=== PATIENT | female | born 1980 | race Caucasian/White ===

== ENCOUNTER 2016-06-30 19:46 | Emergency (ER) | payer BC, MEDICAID ==
[2016-06-30 21:01] LABS: ABSOLUTE NEUTROPHIL COUNT 235.2 K/mm3 (1.8-7.7); BASO # 21.2 K/mm3 (0.0-0.2); BASO % 5.1 % (0.2-1.0); EOS # 0.2 (0.0-0.5); EOS % 0.1 % (0.9-2.9); HEMOGLOBIN 9.3 gm/l (12.0-16.0); IMM NEUT # 135.9 K/mm3 (0-0.2); IMM NEUT% 32.5 % (0-1); LYMPH # 11.8 (1.0-4.8); LYMPH % 2.8 % (15-45); MEAN CELL VOLUME 92.8 fl (81.0-99.0); MEAN CORPUSCULAR HGB CONC 34.4 g/dl (33.0-37.0); MEAN PLATELET VOLUME 11.5 fl (7.4-10.4); MONO # 13.9 (0.0-0.8); MONO % 3.3 % (4-12); NEUT % 56.2 % (43-75); PLATELET COUNT 183 K/mm3 (130-400); RED CELL DISTRIBUTION WIDTH 19.4 % (11.5-14.5)
[2016-06-30 21:13] LABS: ALB/GLOB RATIO 1.2 (>1.0); ALBUMIN 4.6 gm/dL (3.5-5.7); CALCIUM 9.8 mg/dL (8.6-10.3); URIC ACID 8.6 mg/dL (2.3-7.6)
[2016-06-30] MEDS ORDERED: PROCHLORPERAZINE 5 MG/ML 2 ML VIAL ONE (21:36)
[2016-06-30] MEDS ORDERED: SODIUM CHLORIDE 0.9% 1,000 ML ONE (21:36)
[2016-06-30 21:40] LABS: BAND 10 % (0-10); BASOPHIL 1 % (0-1); EOSINOPHIL 0 % (1-3); LYMPHOCYTE 1 % (15-45); METAMYELOCYTE 6 %; MONOCYTE 1 % (4-12); NEUTROPHILS 47 % (43-75); NUCLEATED RED BLOOD CELL 2 /100 WBC; TOTAL CELLS COUNTED 100
[2016-06-30] MEDS ORDERED: LACTATED RINGERS 1,000 ML ONE (21:40)
[2016-06-30 21:44] LABS: PLATELET ESTIMATE NORMAL (NORMAL)
[2016-06-30 21:45] LABS: ORDER PATH REVIEW YES
--- NOTE | 2016-07-01 07:36 | RAD ---
07/01/2016 7:30 AM CHEST - 2 VIEWS History: Left upper quadrant pain and nausea for couple of months. Comparison: None Findings: Two views of the chest are obtained. The lungs are clear with out effusion or pneumothorax. The cardiomediastinal silhouette is unremarkable.. The osseous structures are intact.. IMPRESSION: No acute intrathoracic process.
--- NOTE | 2016-07-02 10:42 | SURGPATH ---
[facility] [address] [place] [id number] Patient Name: BRIGITTE CARRENO MR#: [id number] : 1980 Gender: F Specimen #: [id number] Collected: 06/30/2016 Received: 07/02/2016 Reported: 07/02/2016 Submitting Phys: ZAK KIM Copy To Phys: [facility] ANTHONY SCHROEDER Clinical History / Pre-Operative Diagnosis: Specimen Source / Surgical Procedure Performed: PERIPHERAL BLOOD SMEAR HIGH PRIORITY DIAGNOSIS. REQUIRES CLINICAL ATTENTION Interpretation: PERIPHERAL BLOOD: - MARKED NEUTROPHILIC LEUKOCYTOSIS WITH LEFT SHIFT AND BASOPHILIA, CONSISTENT WITH A MYELOPROLIFERATIVE DISORDER Comment: The findings are consistent with a myeloproliferative disorder, particularly CML; however, bcr/abl testing is necessary to confirm this diagnosis. Electronically Signed Out Maryjane Winkler M.D. Gross Description: RECEIVED 2 UNSTAINED SLIDES Microscopic Description: Peripheral blood automated counts: WBC 418.3, hemoglobin 9.3, MCV 92.8, platelets 183. A differential count includes 56.2% neutrophils, 32.5% immature granulocytes, 2.8% lymphocytes, 3.3% monocytes, 0.1% eosinophils and 5.1% basophils. Peripheral blood smear evaluation: The peripheral blood smear is remarkable for an extremely elevated white blood cell count. There is a neutrophilic leukocytosis with left shifted maturation including numerous immature granulocytes and rare blasts. Red cells are decreased and nucleated red blood cells are seen in circulation. There is basophilia. Platelets are present in adequate numbers and are morphologically unremarkable. 1: 07220 D47.1
== END 2016-07-01 03:49 | disposition short-term general hospital (02) ==
LOC: ED 19:46
DX: R16.1 Splenomegaly, not elsewhere classified (principal); D72.829 Elevated white blood cell count, unspecified